=== PATIENT | female | born 1995 | race African-American/Black ===

== ENCOUNTER 2017-11-13 21:08 | Emergency (ER) | payer OTHER ==
[~2017-11-13] VITALS: Ht 177.8 cm; Wt 95.3 kg
--- NOTE | 2017-11-13 22:19 | Emergency Room Report ---
History of Present Illness General Chief Complaint: Vaginal Source: Patient Present Illness HPI This is a 22-year-old female 2 para 1. She had a him home test was positive. She scheduled for elective at [facility] tomorrow. She another doctor that was getting an today but couldn't find the office. When she got home she her cramping and bleeding. Pain is crampy in nature 05/27. No fever chills but no nausea vomiting. Denies any other complaint. Her menstrual period is irregular. Last menstruation was on . Allergies: Coded Allergies: No Known Allergies (Unverified , 11/13/17) Patient History Past Medical History: see triage record, old chart reviewed Past Surgical History: none Pertinent Family History: none Social History: Denies: smoking Last Menstrual Period: sep 17 Now: Yes - unknown how many weeks : 2 Immunizations: other Reviewed Nursing Documentation: PMH: Agreed, PSxH: Agreed Nursing Documentation-PMH Hx Asthma: Yes Review of Systems Eye: Denies: eye pain, blurred vision ENT: Denies: ear pain, nose congestion, throat swelling Respiratory: Denies: cough, shortness of breath Cardiovascular: Denies: chest pain, palpitations Gastrointestinal: Denies: abdominal pain, diarrhea, nausea, vomiting Musculoskeletal: Denies: back pain, joint pain Skin: Denies: rash Neurological: Denies: headache, numbness Endocrine: Denies: increased thirst, increased urine Hematologic/Lymphatic: Denies: easy bruising All Other Systems: negative except mentioned in HPI Physical Exam Vital Signs Date Time Temp Pulse Resp B/P (MAP) Pulse Ox O2 Delivery O2 Flow Rate FiO2 11/13/17 21:53 97.5 57 18 105/61 98 Room Air vitals normal Sp02 EP Interpretation: reviewed, normal General Appearance: well appearing, no apparent distress, alert Head: normocephalic, atraumatic Eyes: bilateral eye PERRL, bilateral eye EOMI ENT: hearing grossly normal, normal pharynx Neck: full range of motion, supple, no meningismus Respiratory: chest non-tender, lungs clear, normal breath sounds Cardiovascular #1: regular rate, rhythm, no murmur Gastrointestinal: normal bowel sounds, non tender, no mass, no organomegaly, no bruit, non-distended Musculoskeletal: back normal, gait/station normal, normal range of motion Psychiatric: mood/affect normal Skin: warm/dry Medical Decision Making Diagnostic Impression: Primary Impression: Vaginal bleeding ER Course Patient present with vaginal bleeding. She said she had a possible resistance at home. Is a test negative here. Ultrasound showed normal uterus with no thickened endometrium. No . We'll discharge him to CT/MRI/US Diagnostic Results CT/MRI/US Diagnostic Results : Imaging Test Ordered: Pelvic ultrasound Impression negative per radiologist Last Vital Signs Date Time Temp Pulse Resp B/P (MAP) Pulse Ox O2 Delivery O2 Flow Rate FiO2 11/13/17 21:53 97.5 57 18 105/61 98 Room Air Status: improved Disposition: HOME, SELF-CARE Condition: Stable Additional Instructions: followup with your doctor as needed in 7 days. Return it worse. MARIANNA FOOTE M.D. Nov 13, 2017 22:19
[2017-11-13 22:45] LABS: APPEARANCE,URINE CLEAR; BILIRUBIN, URINE NEGATIVE (NEGATIVE); GLUCOSE, URINE (UA) NEGATIVE (NEGATIVE); KETONES,URINE NEGATIVE (NEGATIVE); LEUKOCYTE ESTERASE ,URINE 1+ (NEGATIVE); NITRITE,URINE NEGATIVE (NEGATIVE); PH,URINE 6.5 (4.5-8.0); PROTEIN,URINE NEGATIVE (NEGATIVE); UROBILINOGEN,URINE 1 MG/DL (0.0-1.0)
[2017-11-13 22:49] LABS: COLOR,URINE YELLOW
[2017-11-13 23:29] VITALS: BP 122/75
[2017-11-13 23:34] VITALS: BP 122/75
--- NOTE | 2017-11-14 10:10 | Diagnostic Imaging Report ---
Indication: Positive home test on November 03, vaginal bleeding, negative serum test Technique: Transabdominal and transvaginal images Comparison: none Findings: Uterus measures 8 cm in length by 3.9 cm AP. Endometrium measures 6 mm thick. No myometrial abnormality. Right ovary measures 3.1 cm length. Left ovary measures 3 cm length. No adnexal mass. No free cul-de-sac fluid. Impression: Negative
== END 2017-11-13 23:38 | disposition home or self-care (01) ==
LOC: EMR 22:20
DX: N93.9 Abnormal uterine and vaginal bleeding, unspecified (principal); J45.909 Unspecified asthma, uncomplicated
CPT/HCPCS: 36415; 76856; 81003; 84702; 99284